=== PATIENT | male | born 1975 | race African-American/Black ===

== ENCOUNTER 2020-02-04 21:08 | Emergency (ER) | payer OTHER ==
[~2020-02-04] VITALS: Ht 188 cm; Wt 90.7 kg
[~2020-02-04 21:08] MED LIST: FANAPT6 MG PO; IBUPROFEN 800800 MG PO; NORCO 5-325 TA1 EACH PO; PROAIR HFA8.5 GM INH; PROMETHAZINE/C118 ML PO
[2020-02-04] MEDS ORDERED: WELLBUTRIN SR150 MG PO (21:22)
[2020-02-04 22:13] VITALS: BP 100/58
== END 2020-02-04 22:17 | disposition home or self-care (01) ==
LOC: ER 21:08
DX: M25.551 Pain in right hip (principal); M25.552 Pain in left hip; R93.5 Abnormal findings on diagnostic imaging of other abdominal regions, including retroperitoneum; F17.210 Nicotine dependence, cigarettes, uncomplicated; Z79.899 Other long term (current) drug therapy